=== PATIENT | male | born 1965 | race Caucasian/White ===

== ENCOUNTER → 2017-07-13 | Outpatient (CLI) | payer BC ==
--- NOTE | 2017-07-13 22:36 | MR ---
EXAMINATION TYPE: MR lumbar spine wo con DATE OF EXAM: 07/13/2017 COMPARISON: CT abdomen pelvis December 06, 2011 HISTORY: Low back and left hip pain x 6 mos TECHNIQUE: Multiplanar, multisequence imaging of the lumbar spine is performed without IV contrast. FINDINGS: Sagittal images of the lumbar spine show vertebral body heights and alignment to appear sat isfactory. There is some disc desiccation at L2-L3, L4-L5, and L5-S1 levels. Disc space heights are f airly well-maintained. There are small posterior disc herniation L5-S1 level on sagittal images. The conus medullaris is normal in position and signal ending at T12-L1 disc space level. There is promine nce of epidural fat noted beginning at roughly L3 vertebral body level. The bone marrow signal intens ity some mild heterogeneity. There is mild multilevel anterior spurring seen. Axial images show the T12-L1 and L1-L2 levels to appear within normal limits. Axial images at the L2-L3 level show mild broad disc bulge mildly effacing anterior thecal sac on axi al image 25, bilateral neural foramina are patent. Axial images at L3-L4 level show prominence of epidural fat. There is broad-based posterior disc prot rusion mildly effacing anterior thecal sac. Bilateral neural foramina remain patent. Mild facet arthr opathy is present bilaterally. Axial images at L4-L5 level show mild facet degenerative changes bilaterally. There is broad based di sc protrusion minimally effacing anterior thecal sac. There is prominence of epidural fat. Bilateral neural foramina show mild narrowing on the left. Right-sided neural foramen is patent. Axial images at L5-S1 level show prominent epidural fat. There is mild facet degenerative changes linda aterally. There is broad disc bulge seen. Bilateral neural foramina are patent. No suspicious retroperitoneal findings are seen. IMPRESSION: There is epidural lipomatosis causing generalized narrowing of the spinal canal in the lo wer lumbar levels. There is multilevel degenerative change in lumbar spine most prominent at L5-S1 le cj noted as detailed above.
== END | disposition home or self-care (01) ==
LOC: RADMRIMAIN 19:55
PROVIDERS: ATTEND Psychiatry & Neurology Neurology
DX: M48.06 Spinal stenosis, lumbar region (principal); M47.26 Other spondylosis with radiculopathy, lumbar region; E88.2 Lipomatosis, not elsewhere classified
CPT/HCPCS: 72148

== ENCOUNTER → 2017-11-04 | Outpatient (CLI) | payer BC ==
--- NOTE | 2017-11-04 17:49 | XR ---
EXAMINATION TYPE: XR lumbar spine with bend/flex DATE OF EXAM: 11/04/2017 COMPARISON: NONE HISTORY: Back pain TECHNIQUE: 5 views FINDINGS: Lumbar vertebra have normal alignment. Flexion-extension views show no sign of instability. Disc spaces are fairly well-maintained. Posterior elements are intact. Abdominal aorta is atheromato us. Sacroiliac joints appear normal. There is mild spurring of the endplates. IMPRESSION: Mild spurring. No fracture. No evidence of instability.
== END | disposition home or self-care (01) ==
LOC: RADXRMAIN 17:21
PROVIDERS: ATTEND Neurological Surgery
DX: M46.06 Spinal enthesopathy, lumbar region (principal)
CPT/HCPCS: 72114

== ENCOUNTER → 2018-07-24 | Outpatient (CLI) | payer BC ==
--- NOTE | 2018-07-24 16:09 | MR ---
EXAMINATION TYPE: MR pelvis wo con DATE OF EXAM: 07/24/2018 COMPARISON: Outside pelvic x-ray June 12, 2018. CT abdomen and pelvis December 06, 2011. HISTORY: Lt hip pain, avn Standard multiplanar, multisequence MRI departmental protocol Multiplanar, multisequence images of the pelvis were acquired. FINDINGS: As suspected on recent x-ray there is evidence of avascular necrosis involving left femoral head with serpiginous low T1 signal and surrounding serpiginous increased T2 signal. There is involv ement of the superior portion of the femoral head extending anteriorly to posteriorly 4.6 cm sagittal image 15 and transversely 3.8 cm on coronal image 9. No bony fragmentation is clearly seen. There is small to moderate left hip joint effusion. There is dhiv-eg-[id number] axial joint space loss. No sign ificant acetabular spurring or subchondral cystic changes present. Overall stage III. There is also avascular necrosis involving right femoral head with serpiginous low T1 signal in adjac ent T2 signal identified. Less prominent edema or involvement is seen versus right hip. There is smal l right hip joint effusion. Overall stage III slightly less prominent than right hip. No significant acetabular spurring is seen. Mild axial joint space loss is present. No subchondral cystic change is noted. Remainder of bone marrow signal intensity is maintained. Sacroiliac joints are within normal limits. Visualized pubic symphysis is intact. The prostate gland shows linear areas of diminished signal in the left peripheral zone axial image 8. Bladder is felt within normal limits. No suspicious bowel dilatation is seen. No pelvic fluid collec tion is identified. No groin hernia or adenopathy is seen. IMPRESSION: Stage III avascular necrosis bilateral hips, left femoral head more diffusely involved versus right. No free ossific fracture fragments identified currently.
== END | disposition home or self-care (01) ==
LOC: RADMRIMAIN 14:27
PROVIDERS: ATTEND Orthopaedic Surgery
DX: M87.88 Other osteonecrosis, other site (principal); M87.852 Other osteonecrosis, left femur
CPT/HCPCS: 72195